=== PATIENT | male | born 1955 | race Caucasian/White ===

== ENCOUNTER 2025-09-08 10:22 | Emergency (ER) | payer MEDICARE, OTHER, MEDICAID ==
[~2025-09-08] VITALS: Ht 177.8 cm; Wt 79.1 kg
[2025-09-08 10:23] VITALS: BP 131/80; PULSE 104; RESP 18; TEMP 96.7; O2SAT 98
== END 2025-09-08 14:34 | disposition left against medical advice (07) ==
LOC: ER 10:22
DX: M54.9 Dorsalgia, unspecified (principal)
CPT/HCPCS: 99281